=== PATIENT | female | born 1980 | race Caucasian/White ===

== ENCOUNTER → 2018-08-01 | Day surgery (SDC) | payer MEDICARE, OTHER ==
[~2018-08-01] MED LIST: ATOR10TA PO; FENO145T30 PO; FLUO20CA16 PO; IV RINGERS,LACTATED 1000ML 1,000 ML IV SCH; LEVO50TA5 PO; LIDOCAINE 1% PF 2 ML VIAL. ID PRN; LISI10TA2 PO; METF500T16 PO; MIDAZOLAM HCL/PF 2 MG/2 ML VIAL. IV PRN; PANT20TA2 PO; PROPOFOL 20 ML IV ONE; fentaNYL PF VIAL 100 MCG/2 ML VIAL IV PRN
[2018-08-01 07:46] LABS: U PREG PATIENT NEGATIVE (NEG)
[2018-08-01 09:07] VITALS: BP 120/71
--- NOTE | 2018-08-02 14:11 | PATHOLOGY ---
[facility] Accession Number: [id number] . 01 Material submitted: . DISTAL ESOPHAGEAL BIOPSIES . 01 Clinician provided ICD-10: R12 . 01 Clinical history: . Heartburn . 02 Diagnosis: Esophageal biopsies, distal esophagus: - Segments of hyperplastic squamous esophageal mucosa consistent with reflux esophagitis. . (JPM:mml; 08/02/18) [facility]/08/02/2018 . 02 Comment: Sections of the distal esophageal biopsy reveal segments of tangentially-oriented, hyperplastic squamous esophageal mucosa. The findings are consistent with reflux esophagitis. There is no evidence of Bragg's change, dysplasia, or malignancy. . (JPM:mml; 08/02/18) . 02 Electronically signed: . Charles Davenport MD, Pathologist NPI- [id number] . 01 Gross description: . Received in formalin labeled "Kenrick, Lashawn, distal esophageal BX's," are 3 segments of ga soft tissue measuring 1.3 x 0.8 x 0.2 cm in aggregate dimensions and ranging from 0.3 to 0.7 cm in maximum dimension. The specimen is submitted entirely in cassette A1. (TSD; 08/01/2018) TOB/TOB . 02 Pathologist provided ICD-10: K21.0 . 02 CPT . 298018 Specimen Comment: A courtesy copy of this report has been sent to Specimen Comment: [phone], . Specimen Comment: Report sent to / DR SPARKS Specimen Comment: A duplicate report has been generated due to demographic updates. Performed at: [address], [place], [place] [id number] MD Hussain Gant MD Phone: [phone] Performed at: 02 [facility] [address] [place] [id number] MD Charles Davenport MD Phone: [phone]
== END | disposition home or self-care (01) ==
LOC: SURG 07:17
PROVIDERS: ATTEND Internal Medicine Gastroenterology
DX: K21.0 Gastro-esophageal reflux disease with esophagitis (principal); R05 Cough; I10 Essential (primary) hypertension; E03.9 Hypothyroidism, unspecified; E78.00 Pure hypercholesterolemia, unspecified; G47.30 Sleep apnea, unspecified; F41.9 Anxiety disorder, unspecified; F32.9 Major depressive disorder, single episode, unspecified; Z90.49 Acquired absence of other specified parts of digestive tract; Z82.49 Family history of ischemic heart disease and other diseases of the circulatory system; Z79.899 Other long term (current) drug therapy; Z98.890 Other specified postprocedural states; Z83.3 Family history of diabetes mellitus; Z88.0 Allergy status to penicillin
CPT/HCPCS: 43239; 81025; 88305; J2704

== ENCOUNTER → 2019-01-02 | Day surgery (SDC) | payer MEDICARE, OTHER ==
[~2019-01-02] MED LIST changes: +FLUO10CA13 PO; +HYDROmorphone 2 MG/ML VIAL IV PRN; -MIDAZOLAM HCL/PF 2 MG/2 ML VIAL. IV PRN; +MORPHINE SULFATE 2 MG/ML VIAL. IV PRN; +NORT10CA PO; +ONDANSETRON PF 4 MG/2 ML VIAL. IV PRN; +PROCHLORPERAZINE 10 MG/2 ML VIAL. IV PRN
[2019-01-02 07:22] LABS: U PREG PATIENT NEGATIVE (NEG)
[2019-01-02 08:20] VITALS: BP 122/70
== END | disposition home or self-care (01) ==
LOC: SURG 06:23
PROVIDERS: ATTEND Internal Medicine Gastroenterology
DX: K64.0 First degree hemorrhoids (principal); I10 Essential (primary) hypertension; E03.9 Hypothyroidism, unspecified; K21.9 Gastro-esophageal reflux disease without esophagitis; D50.9 Iron deficiency anemia, unspecified; Z88.0 Allergy status to penicillin; Z88.1 Allergy status to other antibiotic agents; Z83.3 Family history of diabetes mellitus; Z82.49 Family history of ischemic heart disease and other diseases of the circulatory system; Z79.84 Long term (current) use of oral hypoglycemic drugs; Z79.899 Other long term (current) drug therapy; Z90.49 Acquired absence of other specified parts of digestive tract
CPT/HCPCS: 45378; 81025; J2704

== ENCOUNTER → 2019-04-03 | Outpatient (CLI) | payer MEDICARE, OTHER ==
[2019-01-02 08:20] VITALS: BP 122/70
[~2019-04-03] MED LIST changes: +DOXY100C2 PO; -HYDROmorphone 2 MG/ML VIAL IV PRN; -IV RINGERS,LACTATED 1000ML 1,000 ML IV SCH; -LIDOCAINE 1% PF 2 ML VIAL. ID PRN; -MORPHINE SULFATE 2 MG/ML VIAL. IV PRN; -ONDANSETRON PF 4 MG/2 ML VIAL. IV PRN; -PROCHLORPERAZINE 10 MG/2 ML VIAL. IV PRN; -PROPOFOL 20 ML IV ONE; -fentaNYL PF VIAL 100 MCG/2 ML VIAL IV PRN
[2019-04-03 14:41] LABS: BASO # 0.1 x10^3/uL (0.0-0.2); BASO % 1 % (0-3); BILIRUBIN,URINE NEGATIVE (NEG); CLARITY,URINE CLEAR; COLOR,URINE YELLOW; EOS # 0.4 x10^3/uL (0.0-0.7); EOS % 4 % (0-3); HEMATOCRIT 42.3 % (36.0-47.0); HEMOGLOBIN 14.4 g/dL (12.0-15.5); LYMPH # 3.1 x10^3/uL (1.0-4.8); LYMPH % 31 % (24-48); MEAN CORPUSCULAR HEMOGLOBIN 29 pg (25-35); MEAN CORPUSCULAR HGB CONC 34 g/dL (31-37); MEAN CORPUSCULAR VOLUME 87 fL (79-100); MONO # 0.6 x10^3/uL (0.0-1.1); MONO % 6 % (0-9); NEUT # 5.9 x10^3uL (1.8-7.7); NEUT % 59 % (31-73); NITRITE,URINE NEGATIVE (NEG); PH,URINE 6.5; PLATELET COUNT 496 x10^3/uL (140-400); PROTEIN,URINE NEGATIVE (NEG-TRACE); RED BLOOD COUNT 4.89 x10^6/uL (3.50-5.40); RED CELL DISTRIBUTION WIDTH 13.7 % (11.5-14.5); WHITE BLOOD COUNT 10.1 x10^3/uL (4.0-11.0)
[2019-04-03 14:49] LABS: BACTERIA,URINE FEW /HPF (0-FEW); RBC,URINE 0 /HPF (0-2); SQUAMOUS EPITHELIAL CELL,UR FEW /LPF
--- NOTE | 2019-04-03 15:00 | EKG ---
[facility] [address] [place] [address] Test Date: 2019-04-03 Test Time: 14:59:41 Pat Name: ERIC SAMUELS Department: Room: Gender: F Glass [employer] Feeder: MARINA : 1980 Requested By: KAITLYNN ELLISON Order Number: [id number] Reading MD: Migue Sargent Measurements Intervals [place] Rate: 98 P: -11 TN: 164 QRS: 9 QRSD: 92 T: 21 QT: 344 QTc: 441 Interpretive Statements SINUS RHYTHM NORMAL ECG RI6.01 No previous ECG available for comparison Electronically Signed On 04-04-2019 13:03:53 CDT by Migue Sargent
[2019-04-03 15:06] LABS: ALBUMIN 3.6 g/dL (3.4-5.0); CALCIUM 9.3 mg/dL (8.5-10.1); CREATININE 1.1 mg/dL (0.6-1.0); GFR 54.7; TOTAL BILIRUBIN 0.3 mg/dL (0.2-1.0); TOTAL PROTEIN 7.3 g/dL (6.4-8.2)
--- NOTE | 2019-04-03 17:16 | RAD ---
EXAM: CHEST 2 VIEWS. HISTORY: Preoperative risk factors. COMPARISON: None. FINDINGS: Frontal and lateral views of the chest are obtained. There is some rotation to the left. There is a moderate mid thoracic dextrocurvature. An opacity laterally in the right base measures 2.5 cm. This is likely secondary to healed right seventh and eighth rib fractures. There are no confluent infiltrates. There is no pneumothorax or pleural effusion. The heart is not enlarged. IMPRESSION: 1. A right basilar opacity is most likely secondary to old healed rib fractures. Comparison with old radiographs is suggested to confirm long-term stability. Electronically signed by: Simin Bonilla MD (04/03/2019 5:13 PM) [facility]
--- NOTE | 2019-04-04 18:30 | NUR ---
FAXED PRE - OP TEST REPORTS TO 'S OFFICE WITH A NOTE THAT EKG'S PRELIMINARY REPORT WAS REVIEWED BY KATEY NAJERA RN, ANESTHESIA TEAM AND WAS OKAY AT 1245 04/04/2019 AND RECEIVED TRANSMITTAL CONFIRMATION.
--- NOTE | 2019-04-08 17:25 | NUR ---
FAXED CHEST X RAY REPORT TO KIRK NEELY,PCP FOR REVIEW 04/05/2019 AND WAS OKAY AND RECEIVED CLEARANCE NOTE. FAXED CLEARANCE NOTES OF KIRK NEELY TO 'S OFFICE 04/05/2019 AT 1092 AND ALSO CALLED ALBERTO ,OFFICE STAFF AT 1605 AND SHE SAID SHE WILL GIVE COPY TO .
--- NOTE | 2019-04-08 17:35 | NUR ---
FAXED EKG AND URINE CULTURE'S FINAL REPORTS TO 'S OFFICE AT 5477 04/08/2019 AND RECEIVED TRANSMITTAL CONFIRMATION.
== END | disposition home or self-care (01) ==
LOC: SURGPAT 13:56
PROVIDERS: ATTEND Obstetrics & Gynecology
DX: Z01.818 Encounter for other preprocedural examination (principal); E07.9 Disorder of thyroid, unspecified; E78.00 Pure hypercholesterolemia, unspecified
CPT/HCPCS: 36415; 71046; 80053; 81001; 85025; 87086; 93005

== ENCOUNTER → 2022-02-01 | Outpatient (CLI) | payer MEDICARE ==
[2019-04-12 10:00] VITALS: BP 138/84
[~2022-02-01] MED LIST changes: -DOXY100C2 PO; +DOXY100C3 PO; +FENO145T3 PO; -FENO145T30 PO; +LISI10TA16 PO; -LISI10TA2 PO
--- NOTE | 2022-02-01 12:05 | RAD ---
EXAMINATION: US EXT NON VASC LEFT (SOFT TISSUE ULTRASOUND OF THE LEFT THIGH) CLINICAL HISTORY: Left Medial Mid Thigh Mass TECHNIQUE: Grayscale and power Doppler ultrasound imaging was performed in the area of concern along the medial left thigh. COMPARISON: None FINDINGS: Partially circumscribed 3.4 x 3.3 x 1.7 cm subcutaneous mass isoechoic to the adjacent subcutaneous f at corresponding to the area of concern in the medial left thigh. No associated internal vascularity. IMPRESSION: 3.4 cm subcutaneous mass medial left thigh as described, compatible with a lipoma. Electronically signed by: Vadim Bennett DO (02/01/2022 12:02 PM) [id number]
--- NOTE | 2022-02-01 12:16 | RAD ---
EXAMINATION: US BREAST LT, MG DIAGNOSTICUNILAT MAMMO CLINICAL HISTORY: Follow-up left breast asymmetries TECHNIQUE: Digital craniocaudal spot compression views of the left breast obtained. Left breast ultra sound also performed. COMPARISON: Bilateral screening mammogram 12/19/2021 BREAST COMPOSITION: The breasts are almost entirely fatty. FINDINGS: LEFT BREAST MAMMOGRAM: Asymmetries in the medial and lateral left breast are less conspicuous following spot compression. LEFT BREAST ULTRASOUND: At 3:00 position 8 cm from the nipple, there is a 2 mm circumscribed hypoechoic mass. At 11:00 position 6 m from the nipple, there are 3 relatively well-circumscribed hypoechoic masses in close proximity, the largest of which measures 4 x 4 by 2 mm. These most likely represent complicate d and/or clustered cysts. IMPRESSION: Probably benign masses in the left breast at 3:00 and 11:00 positions as described. Recommend follow- up left breast mammogram and left breast ultrasound in 6 months. BI-RADS ASSESSMENT: Category 3: Probably Benign RECOMMENDATION: Left breast diagnostic mammogram and left breast ultrasound in 6 months. PQRS compliance statement - Patient information was entered into a reminder system with a target due date for the next mammogram. "Our facility is accredited by the [employer] Mammography Program." Electronically signed by: Vadim Bennett DO (02/01/2022 12:14 PM) [id number]
== END ==
LOC: MAMMO 10:05
PROVIDERS: ATTEND Physician Assistant Medical
DX: N63.22 Unspecified lump in the left breast, upper inner quadrant (principal); N63.23 Unspecified lump in the left breast, lower outer quadrant; R22.42 Localized swelling, mass and lump, left lower limb
CPT/HCPCS: 76641; 76881; 77065